=== PATIENT | male | born 1960 | race Caucasian/White ===

== ENCOUNTER → 2017-01-18 | Day surgery (SDC) | payer OTHER ==
[~2017-01-18] MED LIST: ASPIRIN EC325 M2 PO; COLACE100 M1 PO; DILAUDID4 M1 PO; MIRALAX17 G1 PO; MS CONTIN15 M2 PO; VICODIN ES 7.51 EACH PO
--- NOTE | 2017-01-18 18:26 | Operative Report ---
Operative/Inv Procedure Report Surgery Date: 01/18/17 Name of Procedure: Right hip aspiration with fluoroscopic guidance Pre-Operative Diagnosis: Rule out infection right hip Post-Operative Diagnosis: Same Estimated Blood Loss: none Surgeon/Injection Molding Machine Setter: MATEO PERRY MD Anesthesia: moderate sedation Operative/Procedure Note Note: The patient was taken to the operating room and positively identified. He was placed supine on the operating room table and all bony problems were well padded. Sedation was induced. The right anterior hip was prepped sterilely. Utilizing fluoroscopic imaging, an 18-gauge spinal needle was passed into the hip joint. Approximately 15 mL of slightly cloudy yellow fluid was obtained. This was sent for cell count Gram stain and culture. The needle was withdrawn and a Band-Aid was placed over the aspiration site. The patient was awakened and taken to recovery room in satisfactory condition.
--- NOTE | 2017-01-19 21:21 | RADIOLOGY REPORT ---
EXAMINATION: XR HIP, RIGHT CLINICAL INFORMATION: Right hip aspiration. COMPARISON: None TECHNIQUE: 2 AP spot images were obtained as part of the aspiration performed by Dr. Luis Biswas. Total fluoroscopy time was 0.1 minutes. DAP is 0.0145 Gycm\S\2. FINDINGS/IMPRESSION: Radiodense material is present in the acetabular and proximal femoral defects from the absent acetabular and femoral components.
== END ==
LOC: STS 02:34
DX: T84.51XA Infection and inflammatory reaction due to internal right hip prosthesis, initial encounter (principal); M16.10 Unilateral primary osteoarthritis, unspecified hip; M54.31 Sciatica, right side
CPT/HCPCS: 87075; 73501; J0690; J2250

== ENCOUNTER 2017-02-13 02:36 | Inpatient (IN) | payer OTHER ==
[~2017-02-13] VITALS: Ht 180.3 cm; Wt 77.1 kg
--- NOTE | 2017-02-13 12:38 | Admission Core Measures ---
Admission Meds I reviewed the following Meds: Current Medications Sig/Rocco Start time Last Medication Dose Stop Time Status Admin Acetaminophen 975 MG ONCE 02/13 NR (Tylenol) 02/13 2359 Cefazolin Sodium 2,000 MG ONCE 02/13 NR (Kefzol-Ancef Inj) 02/13 2359 Oxycodone HCl 10 MG ONCE 02/13 NR (Roxicodone) 02/13 2359 Acute Coronary Syndrome Inclusion Criteria ACS Diagnosis No Inpatient Core Measures LDL Reminder: If No, please order W/I first 24hr of stay Congestive Heart Failure Inclusion Criteria CHF Diagnosis No Cerebrovascular accident Inclusion Criteria CVA/TIA Diagnosis No Inpatient Core Measures Bedside Swallow Eval Reminder: If BSE failed, place ST order Antithrombotic Reminder: Order Antithrombotic Medication by end of day 2 Antithrombotic Reminder: Document Reason Antithrombotic Not ordered by end of day 2 AFIB/Flutter Reminder: If Present, add to problem list AFIB/Flutter Reminder: Order Anticoag Medication for pts with AFIB/Flutter Atherosclerosis Reminder: If Present, add to problem list LDL Reminder: If No, please order W/I first 24hr of stay PT Order Reminder: If No, please order Venous thromboembolism Inpatient Core Measures VTE Risk Factors: Age > 40, [facility] prophylaxis d/t No contraindications No VTE Pharm Prophylaxis d/t No contraindications Inclusion Criteria - Per Current guidelines, there needs to be overlap - treatment for the first 5 days of Warfarin therapy. - Parenteral Anticoagulation (IV or SC) needs to be - given along with Warfarin therapy. VTE Diagnosis No VTE Type NONE VTE Confirmed by (Test) NONE Problem List As ranked by this Provider includes Assessment & Plan 1. Status post revision of total hip replacement HOME MEDS Home Med List Hydrocodone/Acetaminophen (Vicodin Es 7.5-300 MG Tablet) 7.5 MG-300 MG TABLET 1 TAB PO 4 TIMES/DAY PAIN (Reported)
--- NOTE | 2017-02-13 12:46 | Patient Discharge Instructions ---
Discharge Instructions General Discharge Information You were seen/treated for: Hip revision You had these procedures: Right hip revision Watch for these problems: temp>101, increased redness or drainage of wound No bath, but you may shower: Yes Other wound care: Keep incisions clean and dry. May shower, no bathing or soaking. Diet Continue normal diet: Yes Activity Activity Self Limited: Yes Activity Limited to: Weight bear as tolerated Acute Coronary Syndrome Inclusion Criteria At DC or during hospital stay patient has or had the following: ACS DIAGNOSIS No Discharge Core Measures Meds if any: Prescribed or Continued at Discharge Meds if any: NOT Prescribed or Continued at Discharge Congestive Heart Failure Inclusion Criteria At DC or during hospital stay patient has or had the following: CHF DIAGNOSIS No Discharge Core Measures Meds if any: Prescribed or Continued at Discharge Meds if any: NOT Prescribed or Continued at Discharge Cerebrovascular accident Inclusion Criteria At DC or during hospital stay patient has or had the following: CVA/TIA Diagnosis No Discharge Core Measures Meds if any: Prescribed or Continued at Discharge Meds if any: NOT Prescribed or Continued at Discharge Venous thromboembolism Inclusion Criteria VTE Diagnosis No VTE Type NONE VTE Confirmed by (Test) NONE Discharge Core Measures - Per Current guidelines, there needs to be overlap - treatment for the first 5 days of Warfarin therapy. - If discharged on Warfarin prior to 5 days of - overlap therapy, the patient will need to be - assessed for post discharge needs including - *Post discharge parental anticoagulation - *Warfarin and/or parental anticoagulation education - *Follow up date to check INR post discharge At least 5 days overlap therapy as Inpatient No Meds if any: Prescribed or Continued at Discharge Note: Overlap Therapy is Warfarin and Anticoagulant Meds if any: NOT Prescribed or Continued at Discharge
[2017-02-13] MEDS ORDERED: MS CONTIN15 M2 PO (12:49)
[2017-02-13] MEDS ORDERED: MIRALAX17 G1 PO (12:49)
[2017-02-13] MEDS ORDERED: DILAUDID4 M1 PO (12:49)
[2017-02-13] MEDS ORDERED: COLACE100 M1 PO (12:49)
[2017-02-13] MEDS ORDERED: ASPIRIN EC325 M2 PO (12:49)
--- NOTE | 2017-02-13 12:52 | Surgical Discharge Summary ---
Visit Information Visit Dates Admission Date: 02/13/17 Discharge Date: 02/16/17 History of Present Illness Chief Complaint: See H and P Medical History Isolation History: Standard Surgical History Pertinent Surgical History: hip replacement Review of Systems: See H and P Hospital Course Course Attending Physician: MATEO PERRY MD [facility]: Pt underwent an extensive right hip revision on 02/[address] Perry. He tolerated the procedure well and was brought to the PACU in stable condition. Post operatively he worked with PT. It took a few days for him to be able to ambulate enough for discharge. He was able to void without difficulty. His pain was controlled with oral pain medication. He was deemed stable for discharge home with services. Complications: None Allergies: Coded Allergies: No Known Allergies (01/17/17) Significant Procedures: See Operative report Disposition Summary Disposition Principal Diagnosis: Right THR failure Additional Diagnosis: None Discharge Disposition: home health services Discharge Instructions General Discharge Information Code Status: Full Code Patient's Diet: Regular Patient's Activity: WBAT Follow-Up Instructions/Appts: Scheduled appointment for 6 weeks. Call sooner if needed. Medications at Discharge Discharge Medications: Stop taking the following medications: Hydrocodone/Acetaminophen (Vicodin Es 7.5-300 MG Tablet) 7.5 MG-300 MG TABLET ORAL 4 TIMES A DAY Start taking the following new medications: Morphine Sulfate (Ms Contin) 15 MG TABLET.ER 1 Tablet ORAL TWICE DAILY Qty = 6 No Refills Hydromorphone HCl (Dilaudid) 4 MG TABLET 1-2 Tablet ORAL EVERY 4 HOURS NEEDED Qty = 36 No Refills Aspirin (Ecotrin*) 325 MG TABLET.DR 1 Tablet ORAL TWICE DAILY Qty = 60 No Refills Docusate Sodium (Colace) 100 MG CAPSULE 1 Capsule ORAL TWICE DAILY Qty = 14 No Refills Polyethylene Glycol 3350 (Miralax) 17 GRAM POWD.PACK 1 Packet ORAL DAILY Qty = 7 No Refills Instructions: dissolve in water Copies To: MATEO PERRY MD
[2017-02-13 18:52] LABS: ABSOLUTE BASOPHIL COUNT 0 /CUMM (0.0-0.2); ABSOLUTE EOSINOPHIL COUNT 0 /CUMM (0.0-0.7); ABSOLUTE GRANULOCYTE CT 14.4 /CUMM (1.4-6.5); ABSOLUTE LYMPH COUNT 0.8 /CUMM (1.2-3.4); ABSOLUTE MONOCYTE COUNT 0.3 /CUMM (0.10-0.60); BASOPHIL % 0.2 % (0.0-2.0); EOSINOPHIL % 0 % (0-5); HEMATOCRIT 35.1 % (42-52); MEAN CORPUSCULAR HGB 29.5 PG (27.0-31.0); MEAN CORPUSCULAR HGB CONC 34.6 G/DL (33.0-37.0); MEAN CORPUSCULAR VOLUME 85.1 FL (80.0-94.0); MEAN PLATELET VOLUME 9.4 FL (7.4-10.4); PLATELET COUNT 182 /CUMM (130-400); RBC DISTRIBUTION WIDTH 16.9 % (11.5-14.5); RED BLOOD CELL CT 4.12 /CUMM (4.70-6.10); WHITE BLOOD CELL COUNT 15.5 /CUMM (4.8-10.8)
[2017-02-13 19:04] LABS: GRANULOCYTE % 93.1 % (42.2-75.2)
--- NOTE | 2017-02-13 19:47 | Operative Report ---
Operative/Inv Procedure Report Surgery Date: 02/13/17 Name of Procedure: Right total hip revision Pre-Operative Diagnosis: Failed right hip replacement Retained spacer Post-Operative Diagnosis: Same Estimated Blood Loss: 1200 Surgeon/Ghost Writer: ORLANDO WEAVER,MATEO Novoa Anesthesia: block Operative/Procedure Note Note: The patient was taken to the operating room and positively identified. After induction of spinal anesthesia and administration of appropriate preoperative antibiotics she was positioned supine on the operating room table and all bony prominences well-padded. The right lower extremity was then prepped and draped in the usual sterile fashion. Utilizing the previous incision a modified Jernigan approach was made to the right hip. This was carried down through skin and subcutaneous tissue to the level of the fascia. Meticulous hemostasis was maintained with Bovie cautery. The fascial layer was opened sharply exposing the gluteus medius muscle. The anterior one third of gluteus medius muscle was taken down off the greater trochanter with use of Bovie cautery. Scar tissue was removed from the anterior aspect of the hip joint until the intra-articular space was identified. The retained cement was apparent at that time. Retractors were placed around the acetabulum and the cement block was removed with the use of osteotomes and a sagittal saw. Attention was then turned to the acetabular exposure. A very wide exposure was necessary for the custom tri-flange implant. Scar tissue was carefully resected anteriorly posteriorly and laterally. The inferior pubic ramus was also exposed. Scar tissue was curetted from the acetabular bed. The previously noted posterior column defect was a fully exposed. The acetabular bed was then irrigated with several liters of sterile saline. The plastic model of the tri- flange implant was used to make sure the exposure was appropriate. Exposure continued until the plastic model could be seated in the acetabular bed as it was designed to do. After I was satisfied that the plastic tri-flange model was seated in the appropriate position it was then removed. 60 mL of crushed cancellus chips were then blended with 30 mL of Medtronics Pro Genex plus. 30 mL of Medtronics Ortho blend was also utilized. This was all impacted into his posterior column defect. The Biomet tri-flanged acetabular component was then opened. It was impacted into place in the appropriate position. After confirming that the custom implant was sitting in the acetabular cavity as designed, multiple screws both locking and nonlocking were used to fixate the custom implant to the pelvis. A trial liner was then inserted in the custom implant. Attention was then turned to the femur. The cement retained in the proximal femur was removed with the use of osteotomes. The canal was then prepared to accept a Striker sabianist modular stem. The femur was reamed to accept an 18 mm x 195 mm distal conical stem. The proximal femur was prepared to accept a 25 mm +10 cone body. The hip was then trialed with a 36 mm +5 head. This yielded excellent sabianist of leg lengths and appropriate stability. A 10 RingLoc antioxidant infused liner was then impacted into the custom tri- flange implant. The Pratima stem components were then impacted into place. The locking bolt was torqued to specification. The head was then impacted into place and the hip was reduced. The trochanteric fragment was then fixed to the femoral shaft utilizing a 150 mm medium-sized Dall-Miles trochanteric vocational technical education director plate. 2 cables were used for this. The hip was then irrigated with multiple liters of sterile saline. A medium Hemovac drain was left in the intra- articular space. The abductor mechanism and fascial layer were closed with interrupted #1 Vicryl sutures. The skin was reapproximated with interrupted 2-0 Vicryl and closed with lori. A sterile dressing was applied and the patient was awakened and taken to the recovery room in satisfactory condition.
--- NOTE | 2017-02-13 20:41 | RADIOLOGY REPORT ---
EXAMINATION: XR HIP, RIGHT CLINICAL INFORMATION: Postop right hip COMPARISON: None TECHNIQUE: Two views of the right hip. FINDINGS: Status post right hip replacement. Orthopedic hardware in place. Surgical drain over the left hip. Surgical clips over the right lateral soft tissues of hip. IMPRESSION: Status post total right hip replacement
--- NOTE | 2017-02-13 21:45 | NUR ---
PT ARRIVED TO FLOOR VIA STRETCHER AT 2145 FROM PACU. PT A/V/OX3. ON 2LC, RA AT BASELINE. PT HAS R HIP DRESSING, NO DRAINAGE NOTED. HEMOVAC IN PLACE TO R HIP. +PULSES, +CMS. ALPS AND TEDS ON ORDERED. #20 LH INFUSING WITH D51/2NS @ 125ML/HR PER EMAR. #18 TO LAC FLUSHING EASILY. PAIN 9/10, MEDICATED WITH EMAR. BOX LUNCH PROVIDED. PT DENIES ANY NAUSEA/VOMITING. RAMÍREZ IN PLACE DRAINING CLEAR YELLOW URINE TO GRAVITY. ORIENTED TO ROOM, CALL WARREN, & SURROUNDINGS. WILL CONTINUE TO MONITOR.
[2017-02-13 21:58] VITALS: BP 100/70
[2017-02-14] VITALS (7 sets, daily range): BP systolic 90–120; BP diastolic 58–90
--- NOTE | 2017-02-14 03:08 | PN- Orthopedic ---
Subjective Subjective: POC S/P RIGHT HIP REVISION POORLY CONTROLLED PAIN WITH POST OP PAIN REGIME ORDERED DENEIS CP, SOB, NO N+V STATES PAIN IN 07/04 AND ISOLATED TO OPERATIVE AREA Objective Vital Signs and I&Os Vital Signs Date Time Temp Pulse Resp B/P B/P Pulse O2 O2 Flow FiO2 Mean Ox Delivery Rate 02/14 0205 97.4 80 18 110/90 100 Nasal 2.0L Cannula 02/14 0002 98.1 84 16 100/66 100 Nasal 2.0L Cannula 02/138 97.6 90 18 100/70 99 Nasal 2.0L Cannula 02/135 Nasal 2.0L Cannula Intake & Output 02/14 0800 02/14 0000 02/13 1600 02/13 0800 02/13 0000 02/12 1600 Intake Total 605 Output Total 70 Balance 535 Intake, IV 125 Intake, Oral 480 Output, 70 Drainage Patient 170 lb Weight Physical Exam: CV: RRR LUNGS: CLEAR ABD: SOFT, +BS EXT: LEFT LEG DRSG DRY THIGH SOFT IT BAND TENSE DISTAL CMS INTACT HEMOVAC DRAIN: SANGUINOUS DRAINAGE Assessment/Plan Assessment/Plan ORTHO STABLE PAIN CONTROL ISSUSE EXPLAINED TO PATIENT HIS EXTENSIVE SURGERY AND THE CORRECTION OF HIP LEG LENGTH DISCREPANCY MAY CAUSE MUSCLE SPASM ADDING TO HIS POST OP PAIN PLAN WILL ADJUST NARCOTICS ADD MUSCLE RELAXER SCHEDULED IV TORADOL ICE TO RIGHT HIP Core Measures/Miscellaneous Venous Thromboembolism VTE Risk Factors: Age > 40 VTE Contraindications: No Contraindications VTE Diagnosis: No VTE Type: NONE VTE Confirmed by (Test): NONE Beta Candy Is Beta Candy a Home Med? No Antibiotics Is Patient on Antibiotics? Yes
[2017-02-14 08:05] LABS: ABSOLUTE BASOPHIL COUNT 0 /CUMM (0.0-0.2); ABSOLUTE EOSINOPHIL COUNT 0 /CUMM (0.0-0.7); ABSOLUTE GRANULOCYTE CT 8.1 /CUMM (1.4-6.5); ABSOLUTE LYMPH COUNT 0.8 /CUMM (1.2-3.4); ABSOLUTE MONOCYTE COUNT 0.8 /CUMM (0.10-0.60); BASOPHIL % 0.1 % (0.0-2.0); EOSINOPHIL % 0 % (0-5); GRANULOCYTE % 83.6 % (42.2-75.2); MEAN CORPUSCULAR HGB CONC 33.9 G/DL (33.0-37.0); MEAN CORPUSCULAR VOLUME 85.4 FL (80.0-94.0); MEAN PLATELET VOLUME 9.8 FL (7.4-10.4); PLATELET COUNT 165 /CUMM (130-400); RBC DISTRIBUTION WIDTH 16.7 % (11.5-14.5); RED BLOOD CELL CT 3.33 /CUMM (4.70-6.10); WHITE BLOOD CELL COUNT 9.6 /CUMM (4.8-10.8)
--- NOTE | 2017-02-14 08:11 | PN- Orthopedic ---
Subjective Subjective: Patient seen this morning, his pain is better controlled than it was last night, he is sleeping upon my evaluation. He denies any fever or flulike illness. Objective Vital Signs and I&Os Vital Signs Date Time Temp Pulse Resp B/P B/P Pulse O2 O2 Flow FiO2 Mean Ox Delivery Rate 02/14 0400 97.6 87 16 90/64 95 Nasal 2.0L Cannula 02/14 0205 97.4 80 18 110/90 100 Nasal 2.0L Cannula 02/14 0002 98.1 84 16 100/66 100 Nasal 2.0L Cannula 02/14 0000 100 Nasal 2.0L Cannula 02/13 2158 97.6 90 18 100/70 99 Nasal 2.0L Cannula 02/13 2145 Nasal 2.0L Cannula Intake & Output 02/14 1600 02/14 0800 02/14 0000 02/13 1600 02/13 0802/13 0000 Intake Total 605 Output Total 1200 70 Balance -1200 535 Intake, IV 125 Intake, Oral 480 Output, 70 Drainage Output, Urine 1200 Patient 170 lb Weight Hemovac drain 400 output Physical Exam: Well-developed well-nourished no apparent distress. HEENT: Atraumatic, extraocular motion intact Neck: Supple, no lymphadenopathy Respiratory: No respiratory distress Extremities: No edema RIGHT lower extremity hip dressing in place, Hemovac drain in place Mild thigh edema No signs of infection. No shortening or rotation Hip range of motion is limited and without unexpected pain Neurovascularly intact distally Bilateral calves are supple, nontender. Neuro: Alert and oriented x3 Psych: Mood affect normal, normal memory normal judgment. Skin: Warm and dry, no rash on exposed skin Results Last 48 Hours of Labs: Laboratory Tests 02/14 02/13 0645 1840 Chemistry Sodium (137 - 145 mmol/L) 134 L Potassium (3.5 - 5.1 mmol/L) 4.5 Chloride (98 - 107 mmol/L) 101 Carbon Dioxide (22 - 30 mmol/L) 26 Anion Gap (5 - 16) 7 BUN (9 - 20 mg/dL) 9 Creatinine (0.7 - 1.2 mg/dL) 0.8 Estimated GFR (>60 ml/min) > 60 BUN/Creatinine Ratio (7 - 25 %) 11.3 Hematology CBC w Diff Pending NO MAN DIFF REQ WBC (4.8 - 10.8 /CUMM) Pending 15.5 H RBC (4.70 - 6.10 /CUMM) Pending 4.12 L Hgb (14.0 - 18.0 G/DL) Pending 12.1 L Hct (42 - 52 %) Pending 35.1 L MCV (80.0 - 94.0 FL) Pending 85.1 MCH (27.0 - 31.0 PG) Pending 29.5 RDW (11.5 - 14.5 %) Pending 16.9 H Plt Count (130 - 400 /CUMM) Pending 182 MPV (7.4 - 10.4 FL) Pending 9.4 Gran % (42.2 - 75.2 %) 93.1 H Lymphocytes % (20.5 - 51.1 %) 5.1 L Monocytes % (1.7 - 9.3 %) 1.6 L Eosinophils % (0 - 5 %) 0 Basophils % (0.0 - 2.0 %) 0.2 Absolute Granulocytes (1.4 - 6.5 /CUMM) 14.4 H Absolute Lymphocytes (1.2 - 3.4 /CUMM) 0.8 L Absolute Monocytes (0.10 - 0.60 /CUMM) 0.3 Absolute Eosinophils (0.0 - 0.7 /CUMM) 0 Absolute Basophils (0.0 - 0.2 /CUMM) 0 PUBS MCHC (33.0 - 37.0 G/DL) Pending 34.6 Assessment/Plan Assessment/Plan Postoperative #1 status post left total hip arthroplasty revision Current pain regimen seems to be working for him, continue current medications. May need to increase MS Contin from 15 mg to 30 mg if pain continues. Perioperative antibiotics DVT prophylaxis with aspirin 325 mg by mouth twice a day Out of bed with physical therapy, toe-touch weight-bearing right lower extremity Keep Guerin in place for now, likely discontinue later today Regular diet Dressing change tomorrow and Hemovac removal tomorrow DC IV fluids Status post 2 units of blood transfusion yesterday afternoon for acute blood loss anemia, CBC and labs pending this morning, patient hemodynamically stable Core Measures/Miscellaneous Venous Thromboembolism VTE Risk Factors: Age > 40 VTE Contraindications: No Contraindications VTE Diagnosis: No VTE Type: NONE VTE Confirmed by (Test): NONE Beta Candy Is Beta Candy a Home Med? No Antibiotics Is Patient on Antibiotics? Yes
--- NOTE | 2017-02-14 08:45 | NUR ---
220 PT HAD DILAUDID 4MG PO FOR RT.HIP PAIN. 2300 NO RELIEF.DAVID AWARED. 2320 MORPHINE 2MG IV GIVEN.PAIN 07/04 IN RT.HIP. 0000 PT CALLED NO RELIEF YET.DAVID CVALLED WITH NEW ORDERS. 0025 TORADOL 30MG IV GIVEN ORDERED FOR PAIN 07/04. 0100 PA CALLED SINCE PT STILL HAS SEVERE PAIN IN RT.HIP.NEW ORDERS RECEIVED. 0125 MS CONTIN 15MG PO GIVEN. 0145 ROXICODONE 10MG PO ALSO GIVEN PT ASKING FOR SHORT ACTING PAIN MED. 0230 PA CALLED BECAUSE PT IS GETTING VERY ANGRY SINCE HE IS NOT HAVING ANY PAIN RELIEVED YET.DAVID CAME & TALKED TO PT.NEW ORDERS RECEIVED AGAIN. 0250 PAIN REMAINS 07/04.DILAUDID 2MG IV GIVEN WITH VALIUM 5MG PO ORDERED. 0325 PT IS FINALLY SLEEPING NOW.ACTUALLY SNORING. 0400 V/S 97.6-87-16 B/P 90/64.O2 2L SAT 95%.
[2017-02-14 08:54] LABS: HEMATOCRIT 28.4 % (42-52)
--- NOTE | 2017-02-14 17:35 | NUR ---
CALL PLACED TO SURGICAL PA REGARDING RAMÍREZ- RAMÍREZ STILL IN PLACE FROM OR, OK PER SURGICAL PA TO REMOVE RAMÍREZ, RAMÍREZ REMOVED AT 1700, AWAITING TO VOID
--- NOTE | 2017-02-15 07:14 | PN- Orthopedic ---
Subjective Subjective: POD#2 S/P RIGHT LIZ REVISION/REIMPLANT COMFORTABLE THIS AM DENIES CP, SOB, NO N+V WITH DIET ADVANCING WITH PT TOLERATING DIET Objective Vital Signs and I&Os Vital Signs Date Time Temp Pulse Resp B/P B/P Pulse O2 O2 Flow FiO2 Mean Ox Delivery Rate 02/15 2028 98.3 97 20 110/60 97 Room Air 02/14 1606 97.9 90 20 120/60 98 Room Air 02/14 1221 98.5 74 20 110/58 97 02/14 0903 97.6 85 20 110/90 99 02/14 0800 99 Nasal 2.0L Cannula Intake & Output 02/15 0800 02/15 0000 02/14 1600 02/14 0800 02/14 0000 02/13 1600 Intake Total 400 1250 1200 605 Output Total 386 547 9192 1400 70 Balance -525 -800 -40 -200 535 Intake, IV 250 1000 125 Intake, Oral 400 1000 200 480 Number 0 Bowel Movements Output, 90 200 70 Drainage Output, Urine 602 570 6899 1200 Patient 170 lb Weight Physical Exam: CV: RRR LUNGS: CLEAR ABD: SOFT, +BS EXT: DRSG CHANGED, WOUND C/D/I DRAIN D/C'D NO CALF TENDERNESS BILAT DISTAL CMS INTACT BILAT Assessment/Plan Assessment/Plan ORTHO STABLE PLAN CONT OOB WITH PT/STAIRS WEAN IV PAIN MEDS D/C PLANNING Core Measures/Miscellaneous Venous Thromboembolism VTE Risk Factors: Age > 40 VTE Contraindications: No Contraindications VTE Diagnosis: No VTE Type: NONE VTE Confirmed by (Test): NONE Beta Candy Is Beta Candy a Home Med? No Antibiotics Is Patient on Antibiotics? Yes
[2017-02-15 07:32] VITALS: BP 100/50
[2017-02-15 08:10] LABS: ABSOLUTE BASOPHIL COUNT 0 /CUMM (0.0-0.2); ABSOLUTE EOSINOPHIL COUNT 0 /CUMM (0.0-0.7); ABSOLUTE GRANULOCYTE CT 4.2 /CUMM (1.4-6.5); ABSOLUTE LYMPH COUNT 1.1 /CUMM (1.2-3.4); ABSOLUTE MONOCYTE COUNT 0.6 /CUMM (0.10-0.60); BASOPHIL % 0.3 % (0.0-2.0); EOSINOPHIL % 0.7 % (0-5); GRANULOCYTE % 69.9 % (42.2-75.2); MEAN CORPUSCULAR HGB 28.9 PG (27.0-31.0); MEAN CORPUSCULAR VOLUME 84.9 FL (80.0-94.0); MEAN PLATELET VOLUME 10.1 FL (7.4-10.4); PLATELET COUNT 117 /CUMM (130-400); RBC DISTRIBUTION WIDTH 16.9 % (11.5-14.5); RED BLOOD CELL CT 2.51 /CUMM (4.70-6.10); WHITE BLOOD CELL COUNT 6.1 /CUMM (4.8-10.8)
[2017-02-15 08:41] LABS: HEMATOCRIT 21.3 % (42-52)
[2017-02-15 14:01] VITALS: BP 92/70
--- NOTE | 2017-02-15 17:49 | NUR ---
FIRST UNIT OF BLOOD FINISHED INFUSING AT THIS TIME TEMP ORALLY 99.3, BP 104/70 HR 98, 97% RA, RR 18. CALL PLACED TO SURGICAL DAVID ULLOA AT THIS TIME. OK TO BEGIN NEXT UNIT OF BLOOD- GIVE PO TYLENOL AT THIS TIME, AND IV LASIX. WILL MONITOR
[2017-02-15 21:18] VITALS: BP 92/44
[2017-02-15 23:16] VITALS: BP 118/84
[2017-02-16 06:00] VITALS: BP 108/56
[2017-02-16 08:13] LABS: ABSOLUTE BASOPHIL COUNT 0 /CUMM (0.0-0.2); ABSOLUTE EOSINOPHIL COUNT 0.1 /CUMM (0.0-0.7); ABSOLUTE GRANULOCYTE CT 4.5 /CUMM (1.4-6.5); ABSOLUTE LYMPH COUNT 1.1 /CUMM (1.2-3.4); ABSOLUTE MONOCYTE COUNT 0.6 /CUMM (0.10-0.60); BASOPHIL % 0.5 % (0.0-2.0); EOSINOPHIL % 1.7 % (0-5); MEAN CORPUSCULAR HGB 29.2 PG (27.0-31.0); MEAN CORPUSCULAR HGB CONC 34.3 G/DL (33.0-37.0); MEAN PLATELET VOLUME 9.3 FL (7.4-10.4); PLATELET COUNT 133 /CUMM (130-400); RBC DISTRIBUTION WIDTH 16.5 % (11.5-14.5); WHITE BLOOD CELL COUNT 6.4 /CUMM (4.8-10.8)
[2017-02-16 08:21] LABS: HEMATOCRIT 27.2 % (42-52)
--- NOTE | 2017-02-16 08:28 | PN- Orthopedic ---
Subjective Subjective: Awake, alert Had a good night - slept well. Pain tolerable Ambulating slowly with PT - not cleared yet for discharge Objective Vital Signs and I&Os Vital Signs Date Time Temp Pulse Resp B/P B/P Pulse O2 O2 Flow FiO2 Mean Ox Delivery Rate 02/16 0600 99.6 92 18 108/56 97 Room Air 02/15 2118 98.7 99 20 92/44 97 Room Air 02/15 1934 98.8 02/15 1735 99.3 02/15 1401 98.8 100 20 92/70 96 Room Air Intake & Output 02/16 1600 02/16 0802/16 0000 02/15 1600 02/15 0800 02/15 0000 Intake Total 250 950 400 Output Total 850 1100 1475 800 Balance -600 -150 -1075 -800 Intake, Blood 350 Product Intake, Oral 250 600 400 Number 0 Bowel Movements Output, Urine 850 1100 1475 800 Physical Exam: vss, afebrile General: alert and oriented times three Chest: clear anteriorly bilaterally, RRR Abd: soft, good bs Ext: warm, no edema, no calf tenderness Wound: dressing changed, lori intact, no erythema or drainage Assessment/Plan Assessment/Plan 56 yo male s/p R THR revision pain management PT - wbat dc planning asa 325mg po bid for dvt ppx Core Measures/Miscellaneous Venous Thromboembolism VTE Risk Factors: Age > 40 VTE Contraindications: No Contraindications VTE Diagnosis: No VTE Type: NONE VTE Confirmed by (Test): NONE Beta Candy Is Beta Candy a Home Med? No Antibiotics Is Patient on Antibiotics? Yes
[2017-02-16 14:52] VITALS: BP 98/52
[2017-02-16] MEDS ORDERED: VICODIN ES 7.51 EACH PO (15:38)
== END 2017-02-16 16:37 | disposition home health service (06) | DRG 467 ==
LOC: 2NA 02:36 → SDA 02:36 → ENRESERV 20:38 → 2NA 21:45 → ENPENDDIS 02-16 13:00 → 2NA 02-16 16:37
PROVIDERS: Physician Assistant; Physician Assistant Surgical; ADMIT Orthopaedic Surgery
PROC: 0SPA0JZ Removal of Synthetic Substitute from Right Hip Joint, Acetabular Surface, Open Approach (ICD-10-PCS; principal; 2017-02-13)
PROC: 0SR90JA Replacement of Right Hip Joint with Synthetic Substitute, Uncemented, Open Approach (ICD-10-PCS; principal; 2017-02-13)
PROC: 30233N1 Transfusion of Nonautologous Red Blood Cells into Peripheral Vein, Percutaneous Approach (ICD-10-PCS; 2017-02-15)
DX: T84.090A Other mechanical complication of internal right hip prosthesis, initial encounter (principal); D62 Acute posthemorrhagic anemia; Y83.8 Other surgical procedures as the cause of abnormal reaction of the patient, or of later complication, without mention of misadventure at the time of the procedure
CPT/HCPCS: 2NAP; 2NASP; 87070; 87075; 73502-RT; 82436; 86920; 88305; 97110-GO; 97116-GO; 97161-GP; 97530-GO; J0690; J0735; J1170; J1885; J1940; J3360; J7042; P9016